=== PATIENT | female | born 1970 | race Caucasian/White ===

== ENCOUNTER 2024-07-02 08:04 | Emergency (ER) | payer OTHER, SELFPAY ==
--- NOTE | ~2024-07-02 | XR_ITS ---
EXAMINATION: XR shoulder LT min 2V DATE: 07/02/2024 08:53 INDICATION: Left shoulder pain. Fall. TECHNIQUE: 3 views of left shoulder were obtained. COMPARISON: None. FINDINGS: Alignment is normal. No fracture. Joint spaces are normal. IMPRESSION: 1. Normal left shoulder. Reviewed, dictated and finalized at location A. [facility] IMPRESSION: 1. Normal left shoulder.
[2024-07-02 08:13] VITALS: BP 128/77; PULSE 79; RESP 18; TEMP 37; O2SAT 100
--- NOTE | 2024-07-02 08:14 | ED_ITS ---
HPI - Fall General Chief Complaint: Back Pain/Injury Stated Complaint: Fall Injury/Back /Left Shoulder and Arm Time Seen by Provider: 07/02/24 08:20 Source: patient and RN notes reviewed Mode of arrival: ambulatory Limitations: no limitations History of Present Illness HPI Narrative: 24-year-old female presents with concern for shoulder pain after a fall. Reports 2 hours ago she slipped on the ice and landed on her back and but and left shoulder. Reports left shoulder pain. She reports no pain at rest, pain when she tries to move the shoulder or extended from the body. She denies decreased strength, sensation in the lower arm or hand. She also reports achiness between shoulder blades She denies intervention. She denies any loss of bowel or bladder function, perineal anesthesia, weakness in extremity, abdominal pain MD complaint: fall Related Data Allergies Allergy/AdvReac Type Severity Reaction Status Date / Time No Known Allergies Allergy Verified 07/02/24 08:18 Review of Systems Review of Systems: CONSTITUTIONAL: Denies malaise, chills, sweats, or fever. CARDIOVASCULAR: Denies chest pain, palpitations, or edema. RESPIRATORY: Denies cough or dyspnea. SKIN: Denies rash or itching, bruising, redness, swelling. MUSCULOSKELETAL: Reports left shoulder pain, pain between her shoulder blades NEUROLOGIC: Denies numbness, weakness All systems reviewed & are unremarkable except as noted in HPI and below PMFSH Comments At time of signature, agree with nursing past medical, surgical, social and family history. There is no relevant family history pertinent to the presenting complaint Exam Narrative: GENERAL: Well-appearing, well-nourished, and in no acute distress. HEAD: Normocephalic, atraumatic. EYES: PERRLA, conjunctivae clear NECK: Supple. CHEST: Speaks in full sentences. No respiratory distress. HEART: Regular rate and rhythm. Normal and equal peripheral pulses. EXTREMITIES: Left shoulder has normal sensation, limited range of motion. No edema. Normal sensation with sensitivity to light touch and pain. General shoulder tenderness. Nearby joints and structures intact. Distal pulses palpable and equal bilaterally, skin warm, dry, pink. Capillary refill less than 3 seconds. No midline back tenderness to palpation. No paraspinal tenderness. Transfers from sitting to standing. SKIN: Warm, dry, no rash. NEURO: Alert and oriented x3. PSYCH: Normal mood and affect Course Course Emergency Course: Patient is aware of diagnosis, understands and agrees to treatment plan. Anticipatory guidance given. Patient agrees to follow-up as directed and is aware of reasons to seek care at the emergency department. Portions of this record may have been created with voice recognition software Level of Care: Express Care Visit Vital Signs Vital signs: Reviewed. MDM - Fall MDM Narrative Medical decision making narrative: Patients injury and pain is consistent with musculoskeletal etiology. No signs of neurological or vascular compromise on exam. Compartments and tissues are soft without signs of compartment syndrome. Pain is felt appropriate for further evaluation on an outpatient basis. Imaging Data My impression: Images reviewed, interpreted by radiologist, agree, see report. Radiologist's impression: EXAMINATION: XR shoulder LT min 2V DATE: 07/02/2024 08:53 INDICATION: Left shoulder pain. Fall. TECHNIQUE: 3 views of left shoulder were obtained. COMPARISON: None. FINDINGS: Alignment is normal. No fracture. Joint spaces are normal. IMPRESSION: 1. Normal left shoulder. Critical Care Time Critical Care Time Critical Care Time: No Discharge Plan Discharge Clinical Impression: Fall, Left shoulder pain Patient Disposition: Home, Self-Care Condition: Stable Instructions: Shoulder Sprain (ED) Additional Instructions: Your x-ray looks normal. This does not rule out a soft tissue injury. Wear sling as directed for comfort. Make sure you rotate your shoulder occasionally to avoid a frozen shoulder. Take anti-inflammatories as directed for the next couple of days for shoulder pain and back pain. Take muscle relaxers as needed, you can take these up to 3 times a day. They may make you tired so you should know how they affect you before you work, drive, make important decisions. If you have any worsening of symptoms, weakness in any extremity, abdominal pain, loss of bowel or bladder function, or other urgent concerns continue to go to the emergency room. Please follow-up with your PCP on Saturday for further evaluation. Patient Language: Sinhala Prescriptions: New cyclobenzaprine 10 mg tablet 10 mg PO TID PRN (Reason: muscle spasm) Qty: 20 0RF ibuprofen 800 mg tablet 800 mg PO Q6H PRN (Reason: pain) Qty: 30 0RF Follow-up/Referrals: Michel,Dl Shepherd MD [Primary Care Provider] - Time of Disposition: :
== END 2024-07-02 09:14 | disposition home or self-care (01) ==
PROVIDERS: Emergency Provider Nurse Practitioner; PCP Family Medicine
DX: M25.512 Pain in left shoulder (principal); W00.0XXA Fall on same level due to ice and snow, initial encounter
CPT/HCPCS: 73030; 99213; G0463